=== PATIENT | female | born 1980 | race African-American/Black ===

== ENCOUNTER 2020-11-29 19:56 | Emergency (ER) | payer OTHER ==
[2020-11-29 20:14] VITALS: BP 96/56; PULSE 56; TEMP 98.9; BMI 22.8
[2020-11-29] MEDS ORDERED: KETOROLAC TROMETHAMINE 30 MG/1 ML VIAL IM ONE (20:40)
[2020-11-29] MEDS ORDERED: KETOROLAC TROMETHAMINE 30 MG/1 ML VIAL ONE (20:42)
[2020-11-29] MEDS ORDERED: diazePAM 5 MG TABLET PO ONE (20:46)
[2020-11-29] MEDS ORDERED: diazePAM 5 MG TABLET ONE (20:53)
== END 2020-11-29 21:00 | disposition home or self-care (01) ==
LOC: FER 19:56
PROC: 3E0233Z Introduction of Anti-inflammatory into Muscle, Percutaneous Approach (ICD-10-PCS; principal; 2020-11-29)
DX: M54.5 Low back pain (principal); M54.2 Cervicalgia
CPT/HCPCS: 99284-25

== ENCOUNTER 2024-03-10 21:59 | Emergency (ER) | payer BC, OTHER ==
[2024-03-10 22:11] VITALS: BP 108/70; PULSE 54; RESP 17; TEMP 98.1; BMI 23.8
[2024-03-10] MEDS ORDERED: SIMETHICONE 80 MG TAB.CHEW (FP) ONE (23:26)
[2024-03-10] MEDS ORDERED: MAG HYDROX/AL HYDROX/SIMETH 30 ML UNIT-DOSE CUP ONE (23:26)
[2024-03-10] MEDS: MAG HYDROX/AL HYDROX/SIMETH 30 ML UNIT-DOSE CUP PO ONE (23:28)
[2024-03-10] MEDS: SIMETHICONE 80 MG TAB.CHEW (FP) PO ONE (23:29)
[2024-03-10] MEDS ORDERED: SUCRALFATE 1 GM/10 ML UNIT DOSE CUPS ONE (23:54)
[2024-03-10] MEDS: SUCRALFATE 1 GM TABLET (FP) PO ONE (23:55)
== END 2024-03-10 23:57 | disposition home or self-care (01) ==
LOC: FER 21:59
DX: R14.1 Gas pain (principal); R10.12 Left upper quadrant pain
CPT/HCPCS: 71101-TC-LT-FY; 93005; 99284-25